=== PATIENT | female | born 1965 | race Caucasian/White ===

== ENCOUNTER → 2017-06-02 | Outpatient (REF) ==
[~2017-06-02] MED LIST: CALC-649 PO; CEP500 PO; DESO1TAB32 PO; LOR5/325 PO; MULT1CAP41 PO; ROS10 PO; SUMA1TAB3 PO; [UNRECOGNIZED DRUG - CODE] PO
[2017-06-02 09:56] LABS: LDL CHOLESTEROL 84 mg/dl
== END ==
DX: Z02.9 Encounter for administrative examinations, unspecified (principal)

== ENCOUNTER → 2018-02-01 | Outpatient (CLI) | payer OTHER ==
[~2018-02-01] MED LIST changes: +CHOL100058 PO; +TETR15DR9 OP
--- NOTE | 2018-02-02 14:21 | RADIOLOGY IMAGING REPORT ---
[place] [facility] [place] NAME: BRYAN BARBOZA : [id number] MR: [id number] V: [id number] EXAM DATE: [id number] ORDERING PHYSICIAN: YULIYA FRIEDMAN TECHNOLOGIST: Jazzy Temple PROCEDURE:BILATERAL DIGITAL SCREENING MAMMOGRAM WITH CAD ASSISTED INTERPRETATION & 3D TOMOSYNTHESIS COMPARISON:Prior mammograms 01/30/17, 01/25/16, 01/11/15, 01/03/14, 07/27/12, 07/08/11. INDICATIONS:screening FINDINGS: Dense heterogeneous fibroglandular tissue is seen throughout the breasts. The parenchymal pattern has remained stable allowing for difference in mammographic technique & patient positioning. There is no evidence of malignant appearing mass, malignant appearing calcifications or other secondary sign of malignancy in either breast. DIAGNOSTIC CATEGORY 1--NEGATIVE. RECOMMENDATIONS: ROUTINE MAMMOGRAM AND CLINICAL EVALUATION. IMPRESSION: BIRADS 1: Negative. No significant abnormality is seen. Dictated by: Roxanne Howard M.D. on 02/01/2018 at 17:54 Transcribed by: MEGHNA on 02/02/2018 at 8:14 Approved by: Roxanne Howard M.D. on 02/02/2018 at 14:19 [facility]
== END ==
LOC: MAMO 01:18
PROVIDERS: ATTEND Nurse Practitioner Family
DX: Z12.31 Encounter for screening mammogram for malignant neoplasm of breast (principal)
CPT/HCPCS: 77063; 77067

== ENCOUNTER → 2018-04-27 | Outpatient (REF) ==
[2018-04-27 08:25] LABS: LDL CHOLESTEROL 74 mg/dl
== END ==
DX: Z02.9 Encounter for administrative examinations, unspecified (principal)

== ENCOUNTER → 2018-05-06 | Outpatient (CLI) | payer OTHER ==
[2018-05-06 12:19] LABS: PLATELET COUNT, AUTOMATED 258 K/uL (150-450)
== END ==
LOC: LAB 11:47
PROVIDERS: ATTEND Nurse Practitioner Family
DX: D72.828 Other elevated white blood cell count (principal)
CPT/HCPCS: 36415; 85025

== ENCOUNTER → 2018-05-10 | Outpatient (CLI) | payer OTHER ==
--- NOTE | 2018-05-10 12:11 | RADIOLOGY IMAGING REPORT ---
FACILITY: [facility] PATIENT NAME: Jessica Frankel : 1965 MR: [id number] V: [id number] EXAM DATE: ORDERING PHYSICIAN: YULIYA FRIEDMAN TECHNOLOGIST: Location: [facility] Patient: Jessica Frankel : 1965 Visit/Account:[id number] Date of Sevice: 05/10/2018 PELVIC EXAMINATION: Transvaginal pelvic ultrasound with duplex Doppler evaluation HISTORY: Vaginal bleeding x1 month COMPARISON: None. FINDINGS: Uterus: Uterus measures 8 x 4.8 x 5.6 cm. Myometrium: negative Endometrium: The portions of the endometrium visualized appear homogenous measuring 6.5 mm. Cervix: negative Ovaries: Right ovary measuring 2.8 x 1.8 x 1.5 cm in size. Multiple follicles seen in the right ovar y. Left ovary measuring 4.3 x 3.4 x 3.1 cm. 3.6 x 3 x 2.4 cm septated cyst within the left ovary. Blood flow is documented in each ovary by Doppler ultrasound. Adnexa: negative Free pelvic fluid: none IMPRESSION: 1. Endometrium measuring approximately 6.5 mm. 2. Septated cyst in the left ovary measuring 3.6 x 3.0 x 2.4 cm. Report Dictated By: Juno Sawant MD at 05/10/2018 11:48 AM Report E-Signed By: Juno Sawant MD at 05/10/2018 12:05 PM WSN:EMI
== END ==
LOC: US 09:24
PROVIDERS: ATTEND Nurse Practitioner Family
DX: N83.292 Other ovarian cyst, left side (principal)
CPT/HCPCS: 76856